=== PATIENT | female | born 1990 | race Caucasian/White ===

== ENCOUNTER 2017-08-05 10:31 | Inpatient (IN) | payer MEDICAID, OTHER ==
[2017-08-05 11:23] LABS: ADD UMIC YES; UR ASCORBIC ACID 40 mg/dL (NEGATIVE); UR BILIRUBIN (Dip) NEGATIVE (NEGATIVE); UR BLOOD (Dip) NEGATIVE (NEGATIVE); UR CLARITY SLIGHTLY CLOUDY (CLEAR); UR COLOR YELLOW (YELLOW); UR GLUCOSE (Dip) NEGATIVE (NEGATIVE); UR KETONES (Dip) NEGATIVE (NEGATIVE); UR LEUKOCYTE ESTERASE (Dip) NEGATIVE Leu/ul (NEGATIVE); UR NITRITE (Dip) NEGATIVE (NEGATIVE); UR RBC 1 /HPF (0-5); UR SQUAMOUS EPITHELIAL CELL MODERATE /HPF (FEW); UR TOTAL PROTEIN (Dip) 2+ mg/dl (NEGATIVE); UR UROBILINOGEN (Dip) NEGATIVE (NEGATIVE); UR WBC 1 /HPF (0-5)
[2017-08-05 11:31] LABS: ADD MAN DIFF? NO
[2017-08-05 11:36] LABS: BASOPHILS % 0.6 % (0.0-2.0); EOSINOPHILS # 0.1 10^3/ul (0.0-0.5); EOSINOPHILS % 0.8 % (0.0-7.0); HEMOGLOBIN 11.3 g/dl (12.0-16.0); LYMPHOCYTES # 1.9 10^3/ul (0.8-2.9); LYMPHOCYTES % 26.7 % (15.0-51.0); MEAN CORPUSCULAR HEMOGLOBIN 26.2 pg (29.0-33.0); MEAN CORPUSCULAR HGB CONC 33.2 g/dl (32.0-37.0); MEAN CORPUSCULAR VOLUME 78.9 fl (82.0-101.0); MEAN PLATELET VOLUME 12.2 fl (7.4-10.4); MONOCYTE # 0.5 10^3/ul (0.3-0.9); MONOCYTES % 7.3 % (0.0-11.0); NEUTROPHIL # 4.6 10^3/ul (1.6-7.5); NEUTROPHILS % 64.3 % (39.0-77.0); PLATELET COUNT 185 10^3/UL (140-415); RED BLOOD COUNT 4.31 10^6/ul (4.20-5.40)
[2017-08-05 11:36] LABS: WHITE BLOOD COUNT 7.1 10^3/ul (4.8-10.8)
[2017-08-05 11:58] LABS: ALANINE AMINOTRANSFERASE 21 IU/L (13-69); ALBUMIN 3.2 g/dl (3.3-4.9); ALBUMIN/GLOBULIN RATIO 1.03; ALKALINE PHOSPHATASE 148 IU/L (42-121); ANION GAP 12 (8-16); ASPARTATE AMINO TRANSFERASE 24 IU/L (15-46); BILIRUBIN,INDIRECT 0.1 mg/dl (0-1.1); BILIRUBIN,TOTAL 0.1 mg/dl (0.2-1.3); BLOOD UREA NITROGEN 15 mg/dl (7-20); CALCIUM 8.2 mg/dl (8.4-10.2); CARBON DIOXIDE 23 mmol/L (21-31); CHLORIDE 106 mmol/L (97-110); CREATININE 0.82 mg/dl (0.44-1.00); GLUCOSE 99 mg/dl (70-220); POTASSIUM 3.8 mmol/L (3.5-5.1); SODIUM 137 mmol/L (135-144); TOTAL PROTEIN 6.3 g/dl (6.1-8.1); URIC ACID 6.9 mg/dl (3.1-7.9)
[2017-08-05 12:43] LABS: INR 0.99; PROTIME 13.2 Sec (11.9-14.9)
[2017-08-05 12:44] LABS: PARTIAL THROMBOPLASTIN TIME 27.2 Sec (25.0-35.0)
[2017-08-05] MEDS ORDERED: BUTORPHANOL 1 MG INJ IV (13:00)
[2017-08-05] MEDS ORDERED: CARBOPROST 250 MCG INJ IM (13:00)
[2017-08-05] MEDS ORDERED: MISOPROSTOL 200 MCG TAB PR (13:00)
[2017-08-05] MEDS ORDERED: METHYLERGONOVINE 0.2 MG INJ IM (13:00)
[2017-08-05] MEDS ORDERED: OXYTOCIN 30 UNITS/LR 500 ML IV (13:00)
[2017-08-05 15:58] LABS: PARTIAL THROMBOPLASTIN TIME 26.4 Sec (25.0-35.0)
[2017-08-05] MEDS: LACTATED RINGER'S 1,000 ML IV ×2 (16:07→22:03)
[2017-08-05] MEDS: DINOPROSTONE 10 MG VAG SUPP VAG (16:14)
[2017-08-05 18:15] LABS: RAPID PLASMA REAGIN NONREACTIVE (NR)
[2017-08-05 21:26] LABS: HEPATITIS B SURFACE ANTIGEN NEGATIVE (NEGATIVE)
[2017-08-06] MEDS: BUTORPHANOL 2 MG INJ IV (00:28)
[2017-08-06] MEDS: DINOPROSTONE 10 MG VAG SUPP VAG (00:30)
[2017-08-06] MEDS: OXYTOCIN 30 UNITS/LR 500 ML IV ×4 (02:13→06:49)
[2017-08-06] MEDS: LIDOCAINE 1% (MPF) 30 ML INJ INJ (02:58)
[2017-08-06] MEDS ORDERED: ACETAMINOPHEN 325 MG TAB PO (04:00)
[2017-08-06] MEDS ORDERED: CARBOPROST 250 MCG INJ IM (04:00)
[2017-08-06] MEDS ORDERED: NACL 0.9% 3 ML SYG IV (04:00)
[2017-08-06] MEDS ORDERED: ZOLPIDEM 5 MG TAB PO (04:00)
[2017-08-06] MEDS ORDERED: ONDANSETRON 4 MG INJ IV (04:00)
[2017-08-06] MEDS ORDERED: MISOPROSTOL 200 MCG TAB PR (04:00)
[2017-08-06] MEDS ORDERED: OXYTOCIN 30 UNITS/LR 500 ML IV (04:00)
[2017-08-06] MEDS ORDERED: DIPHENHYDRAMINE 25 MG CAP PO (04:00)
[2017-08-06] MEDS ORDERED: morphine 2 MG INJ IV (04:00)
[2017-08-06] MEDS: WITCH HAZEL/GLYCERIN PAD PR (05:13)
[2017-08-06] MEDS: LANOLIN 7 GM TUBE TOP (05:13)
[2017-08-06] MEDS: IBUPROFEN 600 MG TAB PO ×3 (05:14→17:55)
[2017-08-06] MEDS: SENNA/DOCUSATE NA (8.6MG/50MG) TAB PO ×2 (08:56→21:00)
[2017-08-06 11:12] LABS: HEMATOCRIT 32.1 % (37.0-47.0); HEMOGLOBIN 10.6 g/dl (12.0-16.0)
[2017-08-07] MEDS: IBUPROFEN 600 MG TAB PO ×4 (05:30→19:00)
[2017-08-07] MEDS: SENNA/DOCUSATE NA (8.6MG/50MG) TAB PO ×2 (09:00→20:37)
[2017-08-07] MEDS: MEASLES,MUMPS,RUBELLA VACCINE INJ SC* (11:40)
[2017-08-08] MEDS: IBUPROFEN 600 MG TAB PO ×2 (06:00)
[2017-08-08] MEDS: DIPHTH/TET/ACEL PERTUSS (ADULT) 0.5 ML VIAL IM* (06:15)
[2017-08-08] MEDS ORDERED: VARICELLA VACCINE LIVE/PF 1,350 UNIT/0.5 ML ML SC* (09:00)
== END 2017-08-08 09:49 | disposition home or self-care (01) | DRG 775 ==
LOC: OBT 10:31 → PP1 08-06 03:31 → L-D 10:31 → OBT 12:30 → L-D 12:40
PROC: 4A1HXCZ Monitoring of Products of Conception, Cardiac Rate, External Approach (ICD-10-PCS; 2017-08-05)
PROC: 10E0XZZ Delivery of Products of Conception, External Approach (ICD-10-PCS; principal; 2017-08-06)
PROC: 0HQ9XZZ Repair Perineum Skin, External Approach (ICD-10-PCS; 2017-08-06)
PROC: 3E0234Z Introduction of Serum, Toxoid and Vaccine into Muscle, Percutaneous Approach (ICD-10-PCS; 2017-08-07)
PROC: 3E0234Z Introduction of Serum, Toxoid and Vaccine into Muscle, Percutaneous Approach (ICD-10-PCS; 2017-08-08)
DX: O13.4 Gestational [pregnancy-induced] hypertension without significant proteinuria, complicating childbirth (principal); O62.3 Precipitate labor; O70.0 First degree perineal laceration during delivery; O69.81X0 Labor and delivery complicated by cord around neck, without compression, not applicable or unspecified; O48.0 Post-term pregnancy; Z23 Encounter for immunization; Z3A.40 40 weeks gestation of pregnancy; Z37.0 Single live birth
CPT/HCPCS: 76815; 76818; 80053; 81001; 84560; 85014; 85018; 85025; 85384; 85610; 85730; 86592; 86850; 86900; 86901; 87340; 90715